=== PATIENT | male | born 1985 | race African-American/Black ===

== ENCOUNTER 2024-03-18 09:02 | Emergency (ER) | payer BC, SELFPAY ==
[2024-03-18 09:15] VITALS: BP 159/80; PULSE 70; RESP 16; O2SAT 100
--- NOTE | 2024-03-18 09:22 | ED.MALEGU ---
HPI - Male Genitourinary General Chief complaint: Urogenital-Male Stated complaint: STD Testing Time Seen by Provider: 03/18/24 10:28 Source: patient and RN notes reviewed Mode of arrival: ambulatory Limitations: no limitations History of Present Illness HPI Narrative: 38-year-old male presents with concern for a lesion on his penis. He reports he noticed it yesterday. He reports he had intercourse with a new partner recently. He denies dysuria, frequency, urgency, discharge from his penis. He reports the spot it is slightly tender when he touches it but otherwise non painful and not itchy. Related Data Allergies Allergy/AdvReac Type Severity Reaction Status Date / Time No Known Allergies Allergy Verified 03/18/24 10:20 Review of Systems Review of Systems: CONSTITUTIONAL: Denies malaise, chills, sweats, or fever. CARDIOVASCULAR: Denies chest pain, palpitations, or edema. RESPIRATORY: Denies cough or dyspnea. GASTROINTESTINAL: Denies abdominal pain, nausea, vomiting, diarrhea GENITOURINARY: Denies dysuria, frequency, urgency, suprapubic pressure. Denies flank pain or hematuria. SKIN: Reports lesion on his penis MUSCULOSKELETAL: Denies back pain or myalgia. All systems reviewed & are unremarkable except as noted in HPI and below PMFSH Comments At time of signature, agree with nursing past medical, surgical, social and family history. There is no relevant family history pertinent to the presenting complaint Exam Narrative: GENERAL: Well-appearing, well-nourished, and in no acute distress. HEAD: Normocephalic. EYES: PERRLA, conjunctivae clear. NECK: Supple. No lymphadenopathy CHEST: Clear to auscultation. No respiratory distress. HEART: Regular rate and rhythm. ABDOMEN: Soft, nontender upon palpation, nondistended, normal active bowel sounds, no palpable or pulsatile masses, no guarding. No CVA tenderness SKIN: Warm, dry, no rash. Small 0.5 cm skin lesion noted to the shaft of the penis NEURO: Alert and oriented x3. PSYCH: Normal mood and affect Course Course Emergency Course: Patient is aware of diagnosis, understands and agrees to treatment plan. Anticipatory guidance given. Patient agrees to follow-up as directed and is aware of reasons to seek care at the emergency department. Portions of this record may have been created with voice recognition software Level of Care: Express Care Visit Vital Signs Vital signs: Vital Signs Pulse Rate 70 03/18/24 09:15 Respiratory Rate 16 03/18/24 09:15 Blood Pressure 159/80 H 03/18/24 09:15 Pulse Oximetry 100 03/18/24 09:15 Oxygen Delivery Room Air 03/18/24 09:15 Pulse Rate 70 03/18/24 09:15 Respiratory Rate 16 03/18/24 09:15 Blood Pressure 159/80 H 03/18/24 09:15 Pulse Oximetry 100 03/18/24 09:15 Oxygen Delivery Room Air 03/18/24 09:15 Reviewed. MDM - Male Genitourinary MDM Narrative Medical decision making narrative: I evaluated this patient in the express care. History is obtained from patient who is an independent historian and physical exam was performed.? Available medical records were reviewed. ? Exam findings and relevant testing show no acute concerns or changes; patient is non-toxic appearing and is in no distress. ? Differential diagnosis and treatment plan were discussed with the patient. Patient agrees with discussion and after shared medical decision making agrees with plan of care. All questions were answered to the patient's satisfaction. Patient is appropriate for outpatient treatment and follow-up. Differential Diagnosis Differential diagnosis: Likely genital herpes simplex and other (STI) Critical Care Time Critical Care Time Critical Care Time: No Discharge Plan Discharge Clinical Impression: Skin lesion Patient Disposition: Home, Self-Care Condition: Stable Instructions: Antibiotic Form, Safe Sex Practices (ED) Additional Instructions: You have been tested for potential gen
[2024-03-18] MEDS: cefTRIAXone 500 MG, LIDOCAINE HCL 1% LOCAL INJ 1 ML IM (10:39)
[2024-03-18 22:29] LABS: Trichomonas Vag PCR NOT DETECTED (NOT DETECTE)
[2024-03-18 22:52] LABS: Chlamydia trachomatis NOT DETECTED (NOT DETECTE); Neisseria gonorrhoeae PCR NOT DETECTED (NOT DETECTE)
[2024-03-23 03:54] LABS: Source NOT GIVEN
== END 2024-03-18 11:00 | disposition home or self-care (01) ==
PROVIDERS: Emergency Provider Nurse Practitioner; PCP Family Medicine
DX: N48.89 Other specified disorders of penis (principal)
CPT/HCPCS: 87255; 87491; 87591; 87661; 96372; 99213; G0463; J0696